=== PATIENT | male | born 1980 | race Caucasian/White ===

== ENCOUNTER 2021-07-22 12:57 | Emergency (ER) | payer OTHER ==
[2021-07-22 13:52] VITALS: BMI 19.5
[2021-07-22] MEDS ORDERED: SODIUM CHLORIDE 0.9% 500 ML INFUS.BAG IV ONE (14:58)
[2021-07-22] MEDS ORDERED: FAMOTIDINE 20 MG/50 ML IVPB 20 MG/50 ML MG IVPB ONE (15:09)
[2021-07-22] MEDS ORDERED: morphine CARPU-JECT 4 MG/1 ML DISP.SYRIN IVPUSH ONE (15:09)
[2021-07-22] MEDS ORDERED: ONDANSETRON 4 MG/2 ML VIAL IVPUSH ONE (15:09)
[2021-07-22] MEDS ORDERED: PANTOPRAZOLE SODIUM 40 MG VIAL IVPUSH ONE (15:26)
[2021-07-22] MEDS ORDERED: morphine SULFATE 4 MG/ML VIAL ONE (15:52)
[2021-07-22] MEDS ORDERED: ONDANSETRON 4 MG/2 ML VIAL ONE (15:53)
[2021-07-22] MEDS ORDERED: PANTOPRAZOLE SODIUM 40 MG/100 ML BAG IVPB ONE (15:53)
[2021-07-22 16:56] LABS: BASO % 1.2 % (0-2.0); EOS % 0.7 % (0-4.5); HEMATOCRIT 34.9 % (35.4-49); MCH 30.9 pg (25.7-33.7); MCHC 34.4 g/dl (32.0-35.9); MEAN CELL VOLUME 89.9 fl (80-96); MEAN PLT VOLUME 8.9 fl (7.5-11.1); MONO % 10.7 % (3.8-10.2); NEUT % 80.4 % (42.8-82.8); PLATELET COUNT 124 10^3/uL (134-434); RBC 3.88 M/mm3 (4.00-5.60); RDW 16.3 % (11.9-15.9); WHITE BLOOD COUNT 3.3 K/mm3 (4.0-10.0)
[2021-07-22 17:02] LABS: INR 1.65 (0.83-1.09); PROTHROMBIN TIME (PATIENT) 18.6 SEC (9.7-13.0)
[2021-07-22 17:05] LABS: ACTIVATED PTT 33.6 SECONDS (25.2-36.5)
[2021-07-22 17:19] LABS: CHLORIDE 98 mmol/L (98-107); SODIUM 136 mmol/L (136-145)
[2021-07-22 17:22] LABS: ALBUMIN 2.3 g/dl (3.4-5.0); ANION GAP 9 MMOL/L (8-16); BLOOD UREA NITROGEN 18.6 mg/dL (7-18); CO2 29 mmol/L (21-32); GLUCOSE,RANDOM 82 mg/dL (74-106); LIPASE 156 U/L (73-393)
[2021-07-22 17:24] LABS: CREATININE 0.8 mg/dL (0.55-1.3)
[2021-07-22 17:25] LABS: SGOT/AST 90 U/L (15-37); SGPT/ALT 62 U/L (13-61)
[2021-07-22 17:26] LABS: TOT PROT 6.6 g/dl (6.4-8.2)
[2021-07-22 17:27] LABS: ALK PHOS 799 U/L (45-117)
[2021-07-22 17:31] LABS: BILIRUBIN,TOTAL 17.8 mg/dL (0.2-1)
[2021-07-23 02:35] VITALS: BP 110/69; PULSE 65; TEMP 98.3
== END 2021-07-23 04:10 | disposition short-term general hospital (02) ==
LOC: JER 12:57 → JERBED 18:29 → UNDOADMIN 18:29 → JER 07-23 04:10
PROC: 3E033GC Introduction of Other Therapeutic Substance into Peripheral Vein, Percutaneous Approach (ICD-10-PCS; principal; 2021-07-22)
DX: R53.1 Weakness (principal)
CPT/HCPCS: 36415; 71045-TC-FY; 74177-TC; 80053; 82550; 83690; 84484; 85025; 85610; 85730; 87804; 93005; 93010; 99285-25; C9803; Q9967; U0003; U0005